=== PATIENT | female | born 1980 | race American Indian/Alaskan Native ===

== ENCOUNTER 2016-11-03 08:59 | Outpatient (CLI) | payer BC ==
--- NOTE | 2016-11-03 10:49 | Mammography Report ---
Bilateral mammogram and bilateral breast ultrasound: The patient is post breast reduction surgery. Her physician feels bilateral palpable which the patient no longer can feel. Routine views of both breasts are compared to her prior study in May 2013. There is mild architectural distortion bilaterally that is consistent with her breast surgery and generally unchanged from her prior exam. In the medial left breast CC projection near the chest wall there is a discrete 13 mm, elongated nodular density which is not as apparent on prior study. This is not clearly identified in the lateral projection. There are no other interval changes or findings of significance. Ultrasound imaging was restricted to areas of concern as indicated by the patient in both breasts as well as the mammogram finding. In the right breast images were obtained in the 2 through 4:00 locations. In the left breast images were obtained at 12 and 9:00 locations as well as in the 8:00 location. No ultrasound findings are identified and specifically the nodule is not noted. CAD used. Impression: The nodular density on left mammogram is probably benign and does not appear to have an ultrasound correlation. The palpable findings as indicated by the patient are not identified on either mammography or ultrasound. Recommendations: Clinical followup. 6 month repeat left mammogram to confirm stability of the probably benign nodule. BI-RADS CATEGORY: 0 = Needs additional imaging evaluation ACR BI-RADS MAMMOGRAPHIC CODES: 0 = Needs additional imaging evaluation; 1 = Negative; 2 = Benign; 3 = Probably benign; 4 = Suspicious; 5 = Malignant; 6 = Known biopsy-proven malignancy COMMENT: 1. Dense breast tissue, i.e., adenosis, fibrocystic changes, etc., may obscure an underlying neoplasm. 2. Approximately 10% of cancers are not detected with mammography. 3. A negative mammography report should not delay biopsy if a clinically suspicious mass is present.
== END 2016-11-03 09:00 | disposition home or self-care (01) ==
LOC: MAMMO 08:59
PROVIDERS: ATTEND Internal Medicine
DX: N63 Unspecified lump in breast (principal); R92.8 Other abnormal and inconclusive findings on diagnostic imaging of breast; Z98.890 Other specified postprocedural states
CPT/HCPCS: 76642; G0204; 77066

== ENCOUNTER 2019-08-01 10:18 | Outpatient (CLI) | payer BC ==
--- NOTE | 2019-08-05 15:21 | Mammography Report ---
DIGITAL SCREENING MAMMOGRAM WITH CAD, 08/01/2019 INDICATION: Routine screening mammography. History of bilateral reduction mammoplasty. TECHNIQUE: Digital bilateral 2D mammography was obtained in the craniocaudal and mediolateral obliq ue projections. This examination was interpreted with the benefit of Computer-Aided Detection analysi s. COMPARISON: 11/03/2016 FINDINGS: Breast Density: The breasts are heterogeneously dense, which may obscure small masses. There is no evidence of dominant mass, suspicious calcifications or architectural distortion in the r ight breast. A left outer parenchymal asymmetry on the CC view requires additional imaging. No brigette ectural distortion or suspicious calcifications of the left breast. IMPRESSION: Left asymmetry requiring additional imaging. Recommend recall for left exaggerated CC and spot compression CC views and left breast ultrasound if needed. Follow up recommendation: Special View: Spot Category 0: Incomplete. Needs additional imaging evaluation and/or prior mammograms for comparison. A "normal" or negative report should not discourage follow up or biopsy of a clinically significant f inding. A written summary of these findings will be mailed to the patient. The patient will be entered into a mammography reporting system which will generate a reminder letter for the patient's next appointmen t at the appropriate interval. The [employer] recommends yearly mammograms starting at age 40 and continuing as l amador as a woman is in good health. Breast MRI is recommended for women with an approximate 20-25% or greater lifetime risk of breast cancer, including women with a strong family history of breast or ova arturo cancer or who have been treated for Hodgkin's disease. Signer Name: Francisco Leger MD Signed: 08/05/2019 3:17 PM Workstation Name: [id number]
== END 2019-08-01 10:19 | disposition home or self-care (01) ==
LOC: SPVWC 10:18
PROVIDERS: ATTEND Internal Medicine
DX: Z12.31 Encounter for screening mammogram for malignant neoplasm of breast (principal)
CPT/HCPCS: 77067

== ENCOUNTER 2019-08-18 14:50 | Outpatient (CLI) | payer BC ==
--- NOTE | 2019-08-18 15:21 | Mammography Report ---
DIGITAL DIAGNOSTIC MAMMOGRAM WITH CAD, -- 08/18/2019 INDICATION: Recalled to evaluate asymmetry. TECHNIQUE: Digital left mammographic imaging was performed. Spot compression views were obtained. La teral and exaggerated CC views were also obtained. This examination was interpreted with the benefit of Computer-aided Detection analysis. COMPARISON: 08/01/2019 FINDINGS: Breast Density: There are scattered areas of fibroglandular density. Additional left mammographic views are negative. Satisfactory effacement of asymmetry. IMPRESSION: Benign asymmetry and no mammographic evidence of malignancy. Follow up recommendation: Routine yearly BI-RADS Category 2: Benign. A "normal" or negative report should not discourage follow up or biopsy of a clinically significant f inding. A written summary of these findings will be mailed to the patient. The patient will be entered into a mammography reporting system which will generate a reminder letter for the patient's next appointmen t at the appropriate interval. According to the [employer], yearly mammograms are recommended starting at age 40 and continuing as long as a woman is in good health. Breast MRI is recommended for women with an risa roximately 20-25% or greater lifetime risk of breast cancer, including women with a strong family his tory of breast or ovarian cancer and women who have been treated for Hodgkin's disease. Signer Name: Francisco Leger MD Signed: 08/18/2019 3:17 PM Workstation Name: [id number]
== END 2019-08-18 14:51 | disposition home or self-care (01) ==
LOC: SPVWC 14:50
PROVIDERS: ATTEND Internal Medicine
DX: R92.8 Other abnormal and inconclusive findings on diagnostic imaging of breast (principal)

== ENCOUNTER 2021-04-19 09:49 | Outpatient (CLI) | payer BC ==
--- NOTE | 2021-04-19 11:49 | Mammography Report ---
DIGITAL SCREENING MAMMOGRAM WITH CAD, 04/19/2021 CLINICAL INFORMATION / INDICATION: Routine screening mammography. TECHNIQUE: Digital bilateral 2D mammography was obtained in the craniocaudal and mediolateral obliqu e projections. This examination was interpreted with the benefit of Computer-Aided Detection analysis . COMPARISON: 08/18/2019, 08/01/2019, 11/03/2016 FINDINGS: Breast Density: There are scattered areas of fibroglandular density. No dominant mass, suspicious calcifications, or architectural distortion in either breast. The previously described posterior upper outer left breast asymmetry is unchanged. Bilateral benign-a ppearing calcifications are also unchanged. IMPRESSION: No mammographic evidence of malignancy. Follow up recommendation: Routine yearly BI-RADS Category 2: Benign. A "normal" or negative report should not discourage follow up or biopsy of a clinically significant f inding. A written summary of these findings will be mailed to the patient. The patient will be entered into a mammography reporting system which will generate a reminder letter for the patient's next appointmen t at the appropriate interval. The [employer] recommends yearly mammograms starting at age 40 and continuing as l amador as a woman is in good health. Breast MRI is recommended for women with an approximate 20-25% or greater lifetime risk of breast cancer, including women with a strong family history of breast or ova arturo cancer or who have been treated for Hodgkin's disease. Signer Name: Phan Buck MD Signed: 04/19/2021 11:45 AM Workstation Name: [id number]
== END 2021-04-19 09:50 | disposition home or self-care (01) ==
LOC: SPVWC 09:49
PROVIDERS: ATTEND Obstetrics & Gynecology
DX: Z12.31 Encounter for screening mammogram for malignant neoplasm of breast (principal); N64.89 Other specified disorders of breast
CPT/HCPCS: 77067